=== PATIENT | male | born 1990 | race Hispanic/Latino ===

== ENCOUNTER 2024-08-05 17:40 | Emergency (ER) | payer SELFPAY ==
[2024-08-05] MEDS ORDERED: HYDROCODONE/APAP 5/325 MG TAB ONE (18:28)
[2024-08-05] MEDS ORDERED: DIAZEPAM 5 MG TABLET ONE (18:29)
--- NOTE | 2024-08-05 18:57 | RAD REPORT ---
EXAMINATION: XR RIGHT HIP CLINICAL INDICATION: . PAIN RIGHT TECHNIQUE: Multiple views of the right hip were obtained. COMPARISON: No prior exam. FINDINGS: No evidence of fracture or dislocation. Normal alignment. No radiographic evidence of AVN. Several calcifications seen adjacent to the greater trochanter. These are indeterminate. IMPRESSION: No acute process.
[2024-08-05] MEDS ORDERED: KETOROLAC 30 MG/ML INJ ONE ×2 (19:47→21:33)
[2024-08-05 19:51] LABS: Absolute Lymphocytes (CBC) 2.9 K/uL (0.7-4.9); Absolute Monocytes 0.9 K/uL (0.1-1.3); Absolute Neutrophil 7.6 K/uL (1.8-8.0); Basophils % 0.4 % (0-1.3); Eosinophils % 0.2 % (0-4.4); Hematocrit 41.6 % (39.6-49.0); Hemoglobin 14.2 g/dL (13.6-17.9); Lymphocytes % 25.7 % (15.3-44.8); MCH 29.9 pg (27.0-35.0); MCHC 34.1 g/dL (32.0-36.0); MCV 87.8 fL (80-100); MPV 8.4 fL (7.6-11.3); Monocytes % 7.7 % (3.3-12.3); Nucleated Red Blood Cells % 0.1 % (0-0); Platelets 226 thou/uL (152-406); RBC Red Blood Cell Count 4.74 M/uL (4.33-5.43); Red Cell Distribution Width 12.6 % (12.1-15.2)
[2024-08-05 20:11] LABS: Anion Gap 8.8 mEq/L (5.0-15.0); Potassium 3.8 mEq/L (3.5-5.1)
--- NOTE | 2024-08-05 20:13 | RAD REPORT ---
EXAM: CT PELVIS WITHOUT CONTRAST HISTORY: right hip pain COMPARISON: Recent plain radiograph TECHNIQUE: Multiple contiguous axial images were obtained and a CT of the pelvis with IV contrast. Sa gittal and coronal reformats were performed. One or more of the following dose reduction techniques were used: Automated exposure control, adjustment of the mA and/or kV according to patient size, and/ or iterative reconstruction. FINDINGS: There is soft tissue fluid and bony fragmentation seen adjacent to the right greater trocha nter. This may be related to avulsion fracture. Hip joint is intact.. No significant degenerative changes are seen. The visualized intrapelvic structures are unremarkable. Soft tissue swelling is present in the right peritrochanteric tissues. IMPRESSION: Fluid, edema and small calcific densities are seen adjacent to the right greater trochant er. This may be related to avulsion injury/avulsion fractures. MRI of the right hip would be recommended for confirmation.
--- NOTE | 2024-08-05 20:55 | ER ---
Nurse's Notes [facility] Name: Edison Del Rio Age: 33 yrs Sex: Male : 1990 Arrival Date: 08/05/2024 Time: 17:40 Bed 9 Private MD: Diagnosis: Right greater trochanter tendinitis, right greater trochanter tendon calcification, Acute Right Hip pain Presentation: 08/05 18:12 Chief complaint: Patient states: R low back pain radiating to R hip and thigh x approx ph 4 days, denies trauma. Coronavirus screen: Vaccine status: Patient reports receiving the 2nd dose of the covid vaccine. Ebola Screen: No symptoms or risks identified at this time. Initial Sepsis Screen: Does the patient meet any 2 criteria? No. Patient's initial sepsis screen is negative. Does the patient have a suspected source of infection? No. Patient's initial sepsis screen is negative. Risk Assessment: Do you want to hurt yourself or someone else? Patient reports no desire to harm self or others. Onset of symptoms was August 05, 2024. 18:12 Method Of Arrival: Wheelchair ph 18:12 Acuity: KM 4 ph Historical: - Allergies: 18:13 No Known Allergies; ph - PMHx: 18:13 None; ph - Immunization history:: Adult Immunizations unknown. - Infectious Disease History:: Denies. - Social history:: Smoking status: unknown. Screenin:43 [facility] ED Fall Risk Assessment (Adult) History of falling in the last 3 months, jb4 including since admission No falls in past 3 months (0 pts) Confusion or Disorientation No (0 pts) Intoxicated or Sedated No (0 pts) Impaired Gait No (0 pts) Mobility Assist Device Used No (0 pt) Altered Elimination No (0 pt) Score/Fall Risk Level 0 - 2 = Low Risk Oriented to surroundings, Maintained a safe environment. Abuse screen: Denies threats or abuse. Nutritional screening: No deficits noted. Tuberculosis screening: No symptoms or risk factors identified. Assessment: 18:43 General: Appears in no apparent distress. uncomfortable, Behavior is calm, cooperative, jb4 appropriate for age. Pain: Complains of pain in right low back Pain radiates to right hip and lateral aspect of right thigh Pain currently is 8 out of 10 on a pain scale. Pain began 4 days ago. Neuro: Level of Consciousness is awake, alert, obeys commands, Oriented to person, place, time, situation. Cardiovascular: Patient's skin is warm and dry. Respiratory: Airway is patent Respiratory effort is even, unlabored, Respiratory pattern is regular, symmetrical. Derm: Skin is intact, Skin is pink, warm \T\ dry. Musculoskeletal: Circulation, motion, and sensation intact. Range of motion: intact in all extremities. 20:00 Reassessment: Patient appears in no apparent distress at this time. Patient and/or jb4 family updated on plan of care and expected duration. Pain level reassessed. Patient is alert, oriented x 3, equal unlabored respirations, skin warm/dry/pink. 21:00 Reassessment: Patient appears in no apparent distress at this time. Patient and/or jb4 family updated on plan of care and expected duration. Pain level reassessed. Patient is alert, oriented x 3, equal unlabored respirations, skin warm/dry/pink. 22:09 Reassessment: Patient appears in no apparent distress at this time. Patient and/or jb4 family updated on plan of care and expected duration. Pain level reassessed. Patient is alert, oriented x 3, equal unlabored respirations, skin warm/dry/pink. Vital Signs: 18:12 BP 129 / 75; Pulse 80; Resp 18; Temp 97.9; Pulse Ox 98% on R/A; ph 19:47 BP 121 / 72; Pulse 69; Resp 16; Pulse Ox 99% on R/A; jb4 ED Course: 17:42 Patient arrived in ED. mg5 17:59 José Miguel Reilly DO is Attending Physician. ms3 18:13 Triage completed. ph 18:13 Arm band placed on Patient placed in an exam room. ph 18:42 Jamil Smith, RN is Primary Nurse. jb4 18:43 Patient has correct armband on for positive identification. Bed in low position. Call jb4 light in reach. Side rails up X 1. Provided Education on: plan of care. 18:48 Hip Right 2 View XRAY In Process Unspecified. EDMS 19:44 Initial lab(s) drawn, by wa, sent to lab. Inserted saline lock: 20 gauge in right jb4 antecubital area, using aseptic technique. Blood collected. 19:46 BMP Sent. jb4 19:46 CBC with Diff Sent. jb4 19:47 CK Sent. jb4 20:01 CT Pelvis wo Cont In Process Unspecified. EDMS 20:06 Attending Physician role handed off by José Miguel Reilly DO sp4 20:06 Madan Bower MD is Attending Physician. sp4 20:49 Aftab Singh MD is Referral Physician. sp4 22:09 No provider procedures requiring assistance completed. IV discontinued, intact, jb4 bleeding controlled, No redness/swelling at site. Pressure dressing applied. Administered Medications: 18:33 Drug: HYDROcodone-acetaminophen PO 5 mg-325 mg 1 tabs PO once Route: PO; jb4 19:30 Follow up: Response: No adverse reaction; No change in condition jb4 18:33 Drug: Diazepam PO 5 mg PO once Route: PO; jb4 19:30 Follow up: Response: No adverse reaction; No change in condition jb4 19:54 Drug: Ketorolac IVP 10 mg 10 mg IVP once Route: IVP; Site: right antecubital; jb4 21:42 Follow up: Response: No adverse reaction; Marked relief of symptoms jb4 20:48 CANCELLED (Physician Discretion): norco10 mg-325 mg 1 tabs PO once sp4 21:41 Drug: predniSONE PO 60 mg PO once Route: PO; jb4 21:42 Follow up: Response: Medication administered at discharge. jb4 21:41 Drug: Acetaminophen PO 1000 mg PO once Route: PO; jb4 21:42 Follow up: Response: Medication administered at discharge. jb4 21:42 Drug: Ketorolac IVP 15 mg IVP once Route: IVP; Site: right antecubital; jb4 21:42 Follow up: Response: Medication administered at discharge. jb4 Medication: 18:43 VIS not applicable for this client. jb4 Outcome: 20:55 Discharge ordered by . sp4 22:09 Discharged to home with crutches, with friend, jb4 22:09 Condition: stable 22:09 Discharge instructions given to patient, Instructed on discharge instructions, follow up and referral plans. no drinking with medication, no driving heavy equipment, medication usage, crutch walking, Demonstrated understanding of instructions, follow-up care, medications, crutch walking, Prescriptions given X 4, 22:10 Patient left the ED. jb4 Signatures: Dispatcher [employer] Yessi Chamberlain, DREW RN ph Jamil Smith RN RN jb4 José Miguel Reilly DO DO ms3 Madan Bower MD MD sp4 Gay Diaz mg5
--- NOTE | 2024-08-05 20:55 | EDPHYS ---
Physician Documentation [facility] Name: Edison Del Rio Age: 33 yrs Sex: Male : 1990 Arrival Date: 08/05/2024 Time: 17:40 Bed 9 Private MD: ED Physician Madan Bower HPI: 08/05 19:41 This 33 yrs old Male presents to ER via Wheelchair with complaints of Back ms3 Pain. 19:41 33 year old male presents to the Emergency Department for right hip pain began at 8 ms3 p.m. on Sunday and has been severe, rated 8 to 9 out of 10. He is unable to stretch or contract the leg, and any attempt to get up from a wheelchair results in significant pain preventing him from walking. There is no radiation of pain from the back, and he reports no trauma to the leg. He has not been engaging in excessive walking or running. He does not report having fever, chills, nausea, vomiting, or shortness of breath.. Historical: - Allergies: 18:13 No Known Allergies; ph - PMHx: 18:13 None; ph - Immunization history:: Adult Immunizations unknown. - Infectious Disease History:: Denies. - Social history:: Smoking status: unknown. ROS: 19:41 Constitutional: Negative for fever, and chills. Cardiovascular: Negative for chest ms3 pain, and palpitations. Respiratory: Negative for shortness of breath, cough, wheezing, and pleuritic chest pain, Abdomen/GI: Negative for abdominal pain, nausea, vomiting, diarrhea, and constipation, 19:41 MS/extremity: Positive for Right hip pain, Exam: 19:41 Constitutional: This is a well developed, well nourished patient who is awake, alert, ms3 and in no acute distress. Head/Face: Normocephalic, atraumatic. Chest/axilla: Normal chest wall appearance and motion. Nontender with no deformity. Cardiovascular: Regular rate and rhythm with a normal S1 and S2. No gallops, murmurs, or rubs. Normal PMI, no JVD. No pulse deficits. Respiratory: Lungs have equal breath sounds bilaterally, clear to auscultation and percussion. No rales, rhonchi or wheezes noted. No increased work of breathing, no retractions or nasal flaring. Abdomen/GI: Soft, non-tender, with normal bowel sounds. No distension or tympany. No guarding or rebound. No evidence of tenderness throughout. 19:41 Musculoskeletal/extremity: Extremities: noted in the right hip: tenderness, There is no evidence of erythema, swelling, Vital Signs: 18:12 BP 129 / 75; Pulse 80; Resp 18; Temp 97.9; Pulse Ox 98% on R/A; ph 19:47 BP 121 / 72; Pulse 69; Resp 16; Pulse Ox 99% on R/A; jb4 MDM: 18:13 Medical Screening Exam initiated ms3 19:40 ED course: Patient re-evaluated and states pain level is the same. Discussed negative ms3 hip x-ray with patient. Will obtain CT and labs. Will give Toradol for pain. 19:41 Differential diagnosis: Fracture vs IT band syndrome vs Right hip pain. ms3 19:43 Independent interpretation of the following test(s) in the Emergency Department X-Ray: ms3 My interpretation is Right hip x-ray image reviewed by me does not reveal fracture. 20:00 Transition of care: After a detail discussion of the patient's case, care is ms3 transferred to Madan Bower MD. 20:55 ED course: EXAM: CT PELVIS WITHOUT CONTRAST HISTORY: right hip pain COMPARISON: Recent sp4 plain radiograph TECHNIQUE: Multiple contiguous axial images were obtained and a CT of the pelvis with IV contrast. Sagittal and coronal reformats were performed. One or more of the following dose reduction te chniques were used: Automated exposure control, adjustment of the mA and/or kV according to patient size, and/or iterative reconstruction. FINDINGS: There is soft tissue fluid and bony fragmentation seen adjacent to the right greater trochanter. This may be related to avulsion fracture. Hip joint is intact.. No significant degenerative changes are seen. The visualized intrapelvic structures are unremarkable. Soft tissue swelling is present in the right peritrochanteric tissues. IMPRESSION: Fluid, edema and small calcific densities are seen adjacent to the right greater trochanter. This may be related to avulsion injury/avulsion fractures. MRI of the right hip would be recommended for confirmation. Reported By: Etienne Brizuela . 20:55 Data reviewed: vital signs, nurses notes, lab test result(s), radiologic studies. sp4 Consideration of Admission/Observation Escalation of care including admission/observation considered. ED course: Will recommend prednisone for 10 days, crutches, advised pain management and also 2 weeks of bedrest. Will recommend follow-up with orthopedist in 2 weeks if the pain is not improved. 08/05 19:39 Order name: CBC with Diff; Complete Time: 20:28 ms3 08/05 19:39 Order name: BMP; Complete Time: 20:28 ms3 08/05 19:39 Order name: CK; Complete Time: 20:28 ms3 08/05 18:13 Order name: Hip Right 2 View XRAY; Complete Time: 19:19 ms3 08/05 19:39 Order name: CT Pelvis wo Cont; Complete Time: 20:28 ms3 08/05 20:46 Order name: Crutches; Complete Time: 21:43 sp4 Administered Medications: 18:33 Drug: HYDROcodone-acetaminophen PO 5 mg-325 mg 1 tabs PO once Route: PO; jb4 19:30 Follow up: Response: No adverse reaction; No change in condition jb4 18:33 Drug: Diazepam PO 5 mg PO once Route: PO; jb4 19:30 Follow up: Response: No adverse reaction; No change in condition jb4 19:54 Drug: Ketorolac IVP 10 mg 10 mg IVP once Route: IVP; Site: right antecubital; jb4 21:42 Follow up: Response: No adverse reaction; Marked relief of symptoms jb4 20:48 CANCELLED (Physician Discretion): norco10 mg-325 mg 1 tabs PO once sp4 21:41 Drug: predniSONE PO 60 mg PO once Route: PO; jb4 21:42 Follow up: Response: Medication administered at discharge. jb4 21:41 Drug: Acetaminophen PO 1000 mg PO once Route: PO; jb4 21:42 Follow up: Response: Medication administered at discharge. jb4 21:42 Drug: Ketorolac IVP 15 mg IVP once Route: IVP; Site: right antecubital; jb4 21:42 Follow up: Response: Medication administered at discharge. jb4 Disposition Summary: 08/05/24 20:55 Discharge Ordered Problem: new sp4 Symptoms: have improved sp4 Condition: Stable sp4 Diagnosis - Right greater trochanter tendinitis, right greater trochanter tendon sp4 calcification, Acute Right Hip pain Followup: sp4 - With: Aftab Singh MD - When: 7 - 10 days - Reason: Recheck today's complaints Discharge Instructions: - Discharge Summary Sheet sp4 - Musculoskeletal Pain sp4 Forms: - Work release form sp4 - Patient Portal Instructions sp4 Prescriptions: - tramadol 100 mg Oral tablet - take 1 tablet ORAL route every 12 hours PRN pain; 30 tablet; Refills: 0, sp4 Product Selection Permitted - Ibuprofen 800 mg Oral Tablet - take 1 tablet ORAL route every 8 hours As needed take with food; 30 tablet; sp4 Refills: 0, Product Selection Permitted - Prednisone 20 mg Oral tablet - take 1 tablet ORAL route every 12 hours for 10 days; 20 tablet; Refills: 0, sp4 Product Selection Permitted - methocarbamol 750 mg Oral tablet - take 2 tablets ORAL route every 8 hours for 3 days PRN pain; 60 tablet; sp4 Refills: 0, Product Selection Permitted Signatures: Dispatcher [employer] EDYessi May RN RN Jamil Smith RN RN jb4 José Miguel Reilly DO DO ms3 Madan Bower MD MD sp4 Corrections: (The following items were deleted from the chart) 18:14 18:14 Hip Right 2 View+[email or web address] ordered. EDOK EDMS 20:48 20:46 [place] PO 10 mg-325 mg 1 tabs PO once ordered. sp4 sp4
[2024-08-05] MEDS ORDERED: predniSONE 20 MG TAB ONE (21:33)
[2024-08-05] MEDS ORDERED: ACETAMINOPHEN 500 MG TAB ONE (21:33)
[2024-08-05 22:20] VITALS: TEMP 97.9
[2024-08-05 22:25] VITALS: BP 121/72; O2SAT 99
== END 2024-08-05 22:10 | disposition home or self-care (01) ==
LOC: ER 17:40
DX: M70.61 Trochanteric bursitis, right hip (principal)
CPT/HCPCS: 36415; 72192; 80048; 82550; 85025; 96374; 99284; J7512